=== PATIENT | female | born 1985 | race Two or more races ===

== ENCOUNTER 2019-10-30 09:46 | Day surgery (SDC) | payer OTHER ==
[~2019-10-30 09:46] MED LIST: COZAAR100 MG PO
== END 2019-10-30 21:20 | disposition home or self-care (01) ==
LOC: CIR.AMB 09:46
PROVIDERS: ATTEND Obstetrics & Gynecology Obstetrics
DX: N93.8 Other specified abnormal uterine and vaginal bleeding (principal); Z20.828 Contact with and (suspected) exposure to other viral communicable diseases

== ENCOUNTER 2020-11-09 07:30 | Inpatient (IN) | payer OTHER ==
[~2020-11-09] VITALS: Ht 170.2 cm; Wt 74.8 kg
[2020-11-09] MEDS ORDERED: LOSARTAN-HCTZ1 EAC2 PO (08:25)
[2020-11-09] MEDS ORDERED: PUREVIT DUALFE1 EACH PO (08:26)
== END 2020-11-17 12:11 | disposition home or self-care (01) | DRG 743 ==
LOC: SURH 11-14 07:30 → OB/GYN 11-14 14:00 → O/R 11-14 14:00 → OB/GYN 11-15 00:09
PROVIDERS: ADMIT Obstetrics & Gynecology Obstetrics; ATTEND Obstetrics & Gynecology Obstetrics
PROC: 0UB10ZZ Excision of Left Ovary, Open Approach (ICD-10-PCS; principal; 2020-11-14 09:00)
DX: D27.1 Benign neoplasm of left ovary (principal)

== ENCOUNTER 2022-11-27 07:15 | Inpatient (IN) | payer OTHER ==
[~2022-11-27] VITALS: Ht 170.2 cm; Wt 80.3 kg
[~2022-11-27 07:15] MED LIST changes: +LOSARTAN-HCTZ1 EAC2 PO; +PUREVIT DUALFE1 EACH PO
[2022-11-27 09:04] LABS: HEMATOCRIT 31.6 % (36.0-45.00); HEMOGLOBIN 10.6 g/dL (12.0-15.00); MEAN CELL VOLUME 80.6 fL (80.00-100.00); MEAN CORPUSCULAR HEMOGLOBIN 27.1 pg (27.00-32.0); MEAN CORPUSCULAR HGB CONC 33.6 g/dl (32.0-36.0); PLATELET COUNT 258 K/uL (150-450); RED BLOOD COUNT 3.92 M/uL (4.00-6.00)
[2022-11-27 09:38] LABS: URINE APPEARANCE Cloudy; URINE BILIRRUBIN Negative (NEGATIVE); URINE BLOOD Large; URINE COLOR Yellow; URINE GLUCOSE Negative (NEGATIVE); URINE LEUKOCYTE Moderate; URINE NITRATE Negative; URINE PROTEIN Negative (NEGATIVE); URINE UROBILINOGEN 0.2 E.U./dl
[2022-11-27 09:41] LABS: URINE BACTERIA 338.9 uL (0.0-1933); URINE EPITHELIAL CELLS 53.4 uL (0.0-38.8); URINE WBC 40.9 uL (0.0-23.2)
[2022-11-27 09:43] LABS: ALBUMIN 3.4 gm/dL (3.4-5.0); BILIRUBIN TOTAL 0.29 mg/dL (0.3-1.2); CALCIUM 8.6 mg/dL (8.5-10.1); CREATININE SERUM 0.81 mg/dL (0.55-1.02); GFR 79.13; POTASSIUM 3.94 mEq/L (3.5-5.1); TOTAL PROTEIN 7.4 gm/dL (6.4-8.2)
[2022-11-27 10:07] LABS: INR 0.96; PARTIAL THROMBOPLASTIN TIME 28.4 SECONDS (22.0-34.0); PROTHROMBIN TIME 10.1 SECONDS (9.0-11.5)
[2022-11-27 11:01] LABS: URINE CRYSTALS MANY /HPF
[2022-12-04 07:08] LABS: MEAN CELL VOLUME 79.8 fL (80.00-100.00); MEAN CORPUSCULAR HEMOGLOBIN 26.7 pg (27.00-32.0); MEAN CORPUSCULAR HGB CONC 33.4 g/dl (32.0-36.0); PLATELET COUNT 242 K/uL (150-450); RED BLOOD COUNT 3.07 M/uL (4.00-6.00); RED CELL DISTRIBUTION WIDTH 14.9 % (11.5-14.5)
[2022-12-04 07:38] LABS: HEMATOCRIT 24.5 % (36.0-45.00); HEMOGLOBIN 8.2 g/dL (12.0-15.00)
== END 2022-12-06 14:12 | disposition home or self-care (01) | DRG 741 ==
LOC: SURH 12-03 07:15 → O/R 12-03 12:40 → OB/GYN 12-03 12:40
PROVIDERS: ADMIT Obstetrics & Gynecology Obstetrics; ATTEND Obstetrics & Gynecology Obstetrics
PROC: 0UT90ZZ Resection of Uterus, Open Approach (ICD-10-PCS; principal; 2022-12-03 11:30)
DX: D06.0 Carcinoma in situ of endocervix (principal); Z20.822 Contact with and (suspected) exposure to COVID-19